=== PATIENT | male | born 1950 | race Two or more races ===

== ENCOUNTER 2023-06-19 12:14 | Emergency (ER) | payer MEDICARE, OTHER ==
[2023-06-19 14:58] VITALS: BP 159/81; PULSE 80; RESP 18; TEMP 98.4; O2SAT 98
[2023-06-19] MEDS ORDERED: IBUP-1454 PO (15:52)
[2023-06-19] MEDS ORDERED: CEPH250C PO (15:52)
[2023-06-19] MEDS ORDERED: ACET500T58 PO (15:52)
== END 2023-06-19 16:55 | disposition home or self-care (01) ==
LOC: EDBD 12:14 → ER 12:14
DX: S01.511A Laceration without foreign body of lip, initial encounter (principal); S80.01XA Contusion of right knee, initial encounter; S60.221A Contusion of right hand, initial encounter; W01.0XXA Fall on same level from slipping, tripping and stumbling without subsequent striking against object, initial encounter; Y93.89 Activity, other specified; Y92.89 Other specified places as the place of occurrence of the external cause; Y99.8 Other external cause status
CPT/HCPCS: 12011; 73130; 73562

== ENCOUNTER 2023-09-13 14:13 | Inpatient (IN) | payer BC, OTHER ==
[~2023-09-13] VITALS: Ht 165.1 cm; Wt 93.9 kg
[~2023-09-13 14:13] MED LIST: ACET500T58 PO; CEPH250C PO; IBUP-1454 PO
[2023-09-13 14:35] VITALS: PULSE 117; RESP 18; O2SAT 96
[2023-09-13 15:11] LABS: Basophils # (auto) 0.1 10 ^3/uL (0-0.2); Basophils % (auto) 0.6 % (0.0-2.0); Eosinophils # (auto) 0 10 ^3/uL (0-0.8); Eosinophils % (auto) 0.1 % (0.0-7.0); Hematocrit 44.3 % (41.0-53.0); Hemoglobin 14.3 g/dL (13.5-17.5); Lymphocytes # (auto) 0.9 10 ^3/uL (0.4-5.4); Lymphocytes % (auto) 6.4 % (10.0-50.0); Mean Corpuscular Hgb Conc. 32.3 g/dL (32.0-36.0); Mean Corpuscular Volume 89.8 fL (80.0-100.0); Monocytes # (auto) 1.1 10 ^3/uL (0-1.3); Monocytes % (auto) 8.1 % (0.0-12.0); Neutrophils # (auto) 11.3 10 ^3/uL (1.6-8.6); Neutrophils % (auto) 84.8 % (37.0-80.0); Nucleated Red Blood Cells % 0.3 %; Red Blood Cells 4.94 10^6/uL (4.5-5.90); Red Cell Distribution Width 13.8 % (11.8-14.3); White Blood Cell 13.3 10^3/uL (4.4-10.8)
[2023-09-13] MEDS: KETOROLAC TROMETH 30 MG/ML 1ML VIAL IM ONE (15:23)
[2023-09-13 15:24] LABS: Alanine Aminotransferase 95 U/L (7-40); Alkaline Phosphatase 80 U/L (46-116); Anion Gap 12 (5-15); Aspartate Aminotransferase 198 U/L (13-40); BUN/Creatinine Ratio 27.8 (10.0-20.0); Bilirubin, Total 0.8 mg/dL (0.2-1.0); Blood Urea Nitrogen 37 mg/dL (9-23); Calcium 10.5 mg/dL (8.5-10.1); Carbon Dioxide 22 mmol/L (20-30); Chloride 107 mmol/L (98-107); Glucose 139 mg/dL (74-106); Potassium 3.7 mmol/L (3.5-5.1); Sodium 141 mmol/L (136-145); Total Protein 7.6 g/dL (5.7-8.2)
[2023-09-13] MEDS: SODIUM CHLORIDE 0.9% 500 ML IV ONE (17:00)
[2023-09-13] MEDS ORDERED: PIPERACILLIN-TAZOB 3.375GM 100 ML IV SCH (17:00)
[2023-09-13] MEDS ORDERED: NITROGLYCERIN 0.4 MG SL TAB SL PRN (17:00)
[2023-09-13] MEDS ORDERED: MORPHINE SULFATE INJ 2 MG/ml SYRG IV PRN (17:00)
[2023-09-13] MEDS ORDERED: hydrALAZINE HCL 20 MG/ML VL IV PRN (17:15)
[2023-09-13] MEDS ORDERED: ENOXAPARIN SOD 80 MG/0.8ML SYRINGE SC ONE (17:30)
[2023-09-13 17:36] LABS: INR 0.98 (0.9-1.15); Prothrombin Time 10.3 sec (9.3-11.8)
[2023-09-13] MEDS: HYDROcodone-ACET 5/325MG TAB PO ONE (18:00)
[2023-09-13 18:10] VITALS: PULSE 119; RESP 20; O2SAT 95
[2023-09-13] MEDS ORDERED: RIVA10TA PO (18:28)
[2023-09-13] MEDS ORDERED: METF-370 PO (18:28)
[2023-09-13 20:00] VITALS: PULSE 102
[2023-09-13 21:00] VITALS: BP 146/76; PULSE 120; RESP 19; TEMP 99.5; O2SAT 96
[2023-09-13] MEDS: SODIUM CHLORIDE 0.9% 1,000 ML IV SCH (22:17)
[2023-09-13] MEDS: PIPERACILLIN-TAZOB 3.375GM 100 ML IV SCH (22:18)
[2023-09-13] MEDS: RIVAROXABAN 10 MG TAB PO ONE (22:24)
[2023-09-14] VITALS (9 sets, daily range): BP systolic 121–156; BP diastolic 69–90; PULSE 80–120; RESP 17–21; TEMP 97.8–100.3; O2SAT 93–100
[2023-09-14] MEDS ORDERED: METO25TA93 PO (02:59)
[2023-09-14] MEDS ORDERED: PRAV20TA3 PO (03:06)
[2023-09-14] MEDS ORDERED: METF-929 PO (03:06)
[2023-09-14 05:51] LABS: Basophils # (auto) 0.1 10 ^3/uL (0-0.2); Basophils % (auto) 0.5 % (0.0-2.0); Eosinophils # (auto) 0 10 ^3/uL (0-0.8); Eosinophils % (auto) 0.3 % (0.0-7.0); Hematocrit 37.2 % (41.0-53.0); Hemoglobin 12.2 g/dL (13.5-17.5); Lymphocytes # (auto) 0.9 10 ^3/uL (0.4-5.4); Mean Corpuscular Hemoglobin 29.3 pg (28.0-32.0); Mean Corpuscular Hgb Conc. 32.8 g/dL (32.0-36.0); Mean Corpuscular Volume 89.4 fL (80.0-100.0); Monocytes # (auto) 1.1 10 ^3/uL (0-1.3); Monocytes % (auto) 11.3 % (0.0-12.0); Neutrophils # (auto) 7.9 10 ^3/uL (1.6-8.6); Neutrophils % (auto) 78.9 % (37.0-80.0); Nucleated Red Blood Cells % 0.3 %; Red Blood Cells 4.16 10^6/uL (4.5-5.90)
[2023-09-14 05:56] LABS: Chloride 106 mmol/L (98-107); Potassium 3.9 mmol/L (3.5-5.1); Sodium 137 mmol/L (136-145)
[2023-09-14 05:57] LABS: Anion Gap 5 (5-15); Carbon Dioxide 26 mmol/L (20-30)
[2023-09-14 05:58] LABS: Calcium 9.6 mg/dL (8.7-10.4)
[2023-09-14 06:02] LABS: Glucose 119 mg/dL (74-106)
[2023-09-14 06:03] LABS: BUN/Creatinine Ratio 30.4 (10.0-20.0); Blood Urea Nitrogen 38 mg/dL (9-23)
[2023-09-14] MEDS: LIDOCAINE 2%HCL (LOCAL ANESTH.) INJ 10ml MDV IJ ONE (08:00)
[2023-09-14] MEDS: METOPROLOL SUCCINATE XL 50 MG TAB PO SCH (08:04)
[2023-09-14] MEDS ORDERED: METOPROLOL SUCCINATE XL 50 MG TAB PO SCH (10:00)
[2023-09-14] MEDS: metFORMIN HYDROCHLORIDE 500 MG TAB PO SCH (10:00)
[2023-09-14] MEDS ORDERED: fentaNYL CITRATE 100 MCG/2 ML VL ONE (10:14)
[2023-09-14] MEDS ORDERED: MIDAZOLAM HCL 2MG/2ML 2ml VIAL (1mg/ml) ONE (10:14)
[2023-09-14] MEDS: SUCCINYLCHOLINE CHLORIDE 20 MG/ML 10ML VIAL IV ONE (10:15)
[2023-09-14] MEDS ORDERED: LIDOCAINE 2% (LOCAL ANESTH.) PF 5ml SDV ONE (10:41)
[2023-09-14] MEDS ORDERED: PROPOFOL 10 MG/ML 20 ML IV ONE (10:41)
[2023-09-14] MEDS ORDERED: ONDANSETRON HCL 4 MG/2 ML VIAL ONE (10:41)
[2023-09-14] MEDS ORDERED: D5W/LACTATED RINGERS 1,000 ML IV SCH (10:45)
[2023-09-14] MEDS ORDERED: HYDROmorphone HCL 2 MG/ML VL/or syr IV PRN (11:00)
[2023-09-14] MEDS: SODIUM CHLORIDE 0.9% 1,000 ML IV ONE (11:15)
[2023-09-14] MEDS: ONDANSETRON HCL 4 MG/2 ML VIAL IV ONE (11:17)
[2023-09-14] MEDS: SODIUM CHLORIDE 0.9% 1,000 ML IV SCH (12:30)
[2023-09-14] MEDS: ACETAMINOPHEN 325 MG TAB PO PRN (16:11)
[2023-09-14] MEDS: RIVAROXABAN 10 MG TAB PO SCH (17:24)
[2023-09-15] VITALS (7 sets, daily range): BP systolic 130–156; BP diastolic 69–80; PULSE 78–98; RESP 18–20; TEMP 98.1–98.5; O2SAT 92–97
[2023-09-15 08:06] LABS: Basophils # (auto) 0 10 ^3/uL (0-0.2); Basophils % (auto) 0.2 % (0.0-2.0); Eosinophils # (auto) 0.2 10 ^3/uL (0-0.8); Eosinophils % (auto) 2.7 % (0.0-7.0); Hematocrit 34.5 % (41.0-53.0); Hemoglobin 11.1 g/dL (13.5-17.5); Lymphocytes # (auto) 0.7 10 ^3/uL (0.4-5.4); Lymphocytes % (auto) 9.8 % (10.0-50.0); Mean Corpuscular Hemoglobin 29.2 pg (28.0-32.0); Mean Corpuscular Hgb Conc. 32.3 g/dL (32.0-36.0); Mean Corpuscular Volume 90.3 fL (80.0-100.0); Monocytes # (auto) 0.7 10 ^3/uL (0-1.3); Monocytes % (auto) 9.9 % (0.0-12.0); Neutrophils # (auto) 5.1 10 ^3/uL (1.6-8.6); Neutrophils % (auto) 77.4 % (37.0-80.0); Nucleated Red Blood Cells % 0.2 %; Red Blood Cells 3.82 10^6/uL (4.5-5.90); Red Cell Distribution Width 13.9 % (11.8-14.3); White Blood Cell 6.6 10^3/uL (4.4-10.8)
[2023-09-15 08:46] LABS: Calcium 8.7 mg/dL (8.5-10.1); Chloride 109 mmol/L (98-107); Potassium 3.7 mmol/L (3.5-5.1); Sodium 138 mmol/L (136-145)
[2023-09-15 08:47] LABS: Anion Gap 5 (5-15); Carbon Dioxide 24 mmol/L (20-30)
[2023-09-15 08:52] LABS: BUN/Creatinine Ratio 22.2 (10.0-20.0); Glucose 117 mg/dL (74-106)
[2023-09-15 09:01] LABS: Blood Urea Nitrogen 24 mg/dL (9-23)
[2023-09-15 09:05] LABS: Creatine Kinase IFCC 2838 U/L (46-171)
[2023-09-15] MEDS: SODIUM CHLORIDE 0.9% 1,000 ML IV ONE (09:45)
[2023-09-15] MEDS: IOHEXOL 350 MG/ML 100ML IJ ONE (12:08)
[2023-09-16] VITALS (7 sets, daily range): BP systolic 103–143; BP diastolic 61–87; PULSE 70–82; RESP 16–20; TEMP 98–99.2; O2SAT 93–96
[2023-09-16 06:32] LABS: Basophils # (auto) 0 10 ^3/uL (0-0.2); Basophils % (auto) 0.2 % (0.0-2.0); Eosinophils # (auto) 0.4 10 ^3/uL (0-0.8); Eosinophils % (auto) 5.5 % (0.0-7.0); Hematocrit 30.6 % (41.0-53.0); Hemoglobin 10.1 g/dL (13.5-17.5); Lymphocytes # (auto) 1.1 10 ^3/uL (0.4-5.4); Lymphocytes % (auto) 15.4 % (10.0-50.0); Mean Corpuscular Hemoglobin 29.7 pg (28.0-32.0); Mean Corpuscular Volume 90.2 fL (80.0-100.0); Monocytes # (auto) 0.7 10 ^3/uL (0-1.3); Monocytes % (auto) 10.4 % (0.0-12.0); Neutrophils # (auto) 4.7 10 ^3/uL (1.6-8.6); Neutrophils % (auto) 68.5 % (37.0-80.0); Nucleated Red Blood Cells % 0.1 %; Red Blood Cells 3.39 10^6/uL (4.5-5.90); Red Cell Distribution Width 13.8 % (11.8-14.3); White Blood Cell 6.8 10^3/uL (4.4-10.8)
[2023-09-16 06:45] LABS: Chloride 108 mmol/L (98-107); Potassium 3.7 mmol/L (3.5-5.1); Sodium 137 mmol/L (136-145)
[2023-09-16 06:46] LABS: Anion Gap 5 (5-15); Carbon Dioxide 24 mmol/L (20-30)
[2023-09-16 06:47] LABS: Calcium 8.2 mg/dL (8.5-10.1)
[2023-09-16 06:51] LABS: BUN/Creatinine Ratio 19.8 (10.0-20.0); Blood Urea Nitrogen 18 mg/dL (9-23); Glucose 94 mg/dL (74-106)
[2023-09-16] MEDS ORDERED: HYDR-4902 PO (09:46)
[2023-09-16] MEDS ORDERED: IBUP-1454 PO (09:48)
[2023-09-16] MEDS ORDERED: ACET500T58 PO (09:51)
[2023-09-16] MEDS: HYDROcodone-ACET 5/325MG TAB PO PRN (11:35)
[2023-09-17] VITALS (8 sets, daily range): BP systolic 132–157; BP diastolic 70–95; PULSE 79–89; RESP 18–19; TEMP 98.1–99.4; O2SAT 93–98
[2023-09-17 05:51] LABS: Basophils # (auto) 0 10 ^3/uL (0-0.2); Basophils % (auto) 0.5 % (0.0-2.0); Eosinophils # (auto) 0.5 10 ^3/uL (0-0.8); Eosinophils % (auto) 7.4 % (0.0-7.0); Hematocrit 29.7 % (41.0-53.0); Hemoglobin 9.9 g/dL (13.5-17.5); Lymphocytes % (auto) 14.1 % (10.0-50.0); Mean Corpuscular Hemoglobin 29.7 pg (28.0-32.0); Mean Corpuscular Hgb Conc. 33.3 g/dL (32.0-36.0); Mean Corpuscular Volume 89.3 fL (80.0-100.0); Monocytes # (auto) 0.7 10 ^3/uL (0-1.3); Monocytes % (auto) 10.8 % (0.0-12.0); Neutrophils # (auto) 4.6 10 ^3/uL (1.6-8.6); Neutrophils % (auto) 67.2 % (37.0-80.0); Red Blood Cells 3.33 10^6/uL (4.5-5.90); Red Cell Distribution Width 13.8 % (11.8-14.3); White Blood Cell 6.8 10^3/uL (4.4-10.8)
[2023-09-17 05:57] LABS: Chloride 106 mmol/L (98-107); Potassium 3.5 mmol/L (3.5-5.1); Sodium 136 mmol/L (136-145)
[2023-09-17 05:59] LABS: Anion Gap 5 (5-15); Calcium 8.4 mg/dL (8.7-10.4); Carbon Dioxide 25 mmol/L (20-30)
[2023-09-17 06:04] LABS: Blood Urea Nitrogen 13 mg/dL (9-23); Glucose 98 mg/dL (74-106)
[2023-09-17] MEDS: ACCU-CHEK COMFORT CURVE STRIP VI SCH (11:33)
[2023-09-17 13:36] LABS: Urine Bacteria FEW /hpf (None Seen); Urine Blood Negative /uL (Negative); Urine Clarity Clear (Clear); Urine Color Yellow (Yellow); Urine Protein, UAD Negative (Negative); Urine Specific Gravity 1.018 (1.001-1.035); Urine Urobilinogen Normal (Negative); Urine WBC 1 /hpf (0 - 3); Urine pH 5.5 (5.0-9.0)
[2023-09-18] VITALS (9 sets, daily range): BP systolic 122–154; BP diastolic 66–81; PULSE 70–85; RESP 18–19; TEMP 98–100.1; O2SAT 91–98
[2023-09-18 06:54] LABS: Basophils # (auto) 0 10 ^3/uL (0-0.2); Basophils % (auto) 0.5 % (0.0-2.0); Eosinophils # (auto) 0.5 10 ^3/uL (0-0.8); Eosinophils % (auto) 7.1 % (0.0-7.0); Hematocrit 29.9 % (41.0-53.0); Hemoglobin 9.9 g/dL (13.5-17.5); Lymphocytes # (auto) 1.1 10 ^3/uL (0.4-5.4); Lymphocytes % (auto) 16.7 % (10.0-50.0); Mean Corpuscular Hemoglobin 29.8 pg (28.0-32.0); Mean Corpuscular Hgb Conc. 33.1 g/dL (32.0-36.0); Mean Corpuscular Volume 89.9 fL (80.0-100.0); Monocytes # (auto) 0.8 10 ^3/uL (0-1.3); Monocytes % (auto) 11.9 % (0.0-12.0); Neutrophils # (auto) 4.1 10 ^3/uL (1.6-8.6); Neutrophils % (auto) 63.8 % (37.0-80.0); Nucleated Red Blood Cells % 0.1 %; Red Blood Cells 3.33 10^6/uL (4.5-5.90); Red Cell Distribution Width 13.5 % (11.8-14.3); White Blood Cell 6.5 10^3/uL (4.4-10.8)
[2023-09-18 07:06] LABS: Chloride 108 mmol/L (98-107); Potassium 3.3 mmol/L (3.5-5.1); Sodium 137 mmol/L (136-145)
[2023-09-18 07:07] LABS: Anion Gap 4 (5-15); Calcium 8.4 mg/dL (8.5-10.1); Carbon Dioxide 25 mmol/L (20-30)
[2023-09-18 07:12] LABS: BUN/Creatinine Ratio 11.2 (10.0-20.0); Blood Urea Nitrogen 10 mg/dL (9-23); Glucose 112 mg/dL (74-106)
[2023-09-18] MEDS ORDERED: HYDROmorphone HCL 2 MG/ML VL/or syr ONE (12:05)
[2023-09-18] MEDS ORDERED: MIDAZOLAM HCL 2MG/2ML 2ml VIAL (1mg/ml) ONE (12:05)
[2023-09-18] MEDS ORDERED: KETAMINE 50mg/ML 1ml syringe ONE (12:05)
[2023-09-18] MEDS ORDERED: fentaNYL CITRATE 100 MCG/2 ML VL ONE (12:05)
[2023-09-18] MEDS ORDERED: ePHEDrine SULFATE 50 MG/ML AMP ONE (12:06)
[2023-09-18] MEDS ORDERED: ROCURONIUM 10MG/ML 10ML VIAL IV ONE (12:06)
[2023-09-18] MEDS ORDERED: PROPOFOL 10 MG/ML 20 ML IV ONE (12:06)
[2023-09-18] MEDS ORDERED: DexAMETHasone SOD PHOS 10MG/1ML VIAL INJ ONE (12:06)
[2023-09-18] MEDS ORDERED: GLYCOPYRROLATE 0.2 MG/ML 1ML VIAL ONE (12:06)
[2023-09-18] MEDS ORDERED: ONDANSETRON HCL 4 MG/2 ML VIAL ONE (12:06)
[2023-09-18] MEDS ORDERED: LIDOCAINE 1% INJ PF 5ML AMP ONE (12:06)
[2023-09-18] MEDS ORDERED: PHENYLEPHRINE HCL 10 MG/ML VL ONE (12:06)
[2023-09-18] MEDS ORDERED: SUGAMMADEX 200mg/2ml Vial (100MG/ML) IV ONE (13:21)
[2023-09-18] MEDS: VANCOMYCIN HCL 1000 MG VL ONE (13:24)
[2023-09-18] MEDS ORDERED: HYDROmorphone HCL 2 MG/ML VL/or syr IV PRN (14:30)
[2023-09-18] MEDS: ceFAZolin 2 GM/D5W50ml 50 ML IV ONE (16:09)
[2023-09-18] MEDS: ROPIVACAINE 0.5% (5MG/ML) 20ML AMPULE IJ ONE (16:10)
[2023-09-18] MEDS: ACCU-CHEK COMFORT CURVE STRIP VI ONE (20:52)
[2023-09-18] MEDS: ceFAZolin 1GM/50ML 50 ML IV SCH (21:21)
[2023-09-18] MEDS: ONDANSETRON HCL 4 MG/2 ML VIAL IV ONE (23:00)
[2023-09-19] VITALS (8 sets, daily range): BP systolic 112–148; BP diastolic 70–88; PULSE 70–93; RESP 18–21; TEMP 98.3–99.3; O2SAT 94–100
[2023-09-19 06:35] LABS: Basophils # (auto) 0.1 10 ^3/uL (0-0.2); Basophils % (auto) 0.7 % (0.0-2.0); Eosinophils # (auto) 0 10 ^3/uL (0-0.8); Eosinophils % (auto) 0.4 % (0.0-7.0); Hematocrit 30.3 % (41.0-53.0); Hemoglobin 9.6 g/dL (13.5-17.5); Lymphocytes % (auto) 10.7 % (10.0-50.0); Mean Corpuscular Hemoglobin 28.8 pg (28.0-32.0); Mean Corpuscular Hgb Conc. 31.8 g/dL (32.0-36.0); Mean Corpuscular Volume 90.4 fL (80.0-100.0); Monocytes # (auto) 0.8 10 ^3/uL (0-1.3); Monocytes % (auto) 8.5 % (0.0-12.0); Neutrophils # (auto) 7.6 10 ^3/uL (1.6-8.6); Neutrophils % (auto) 79.7 % (37.0-80.0); Nucleated Red Blood Cells % 0.1 %; Red Blood Cells 3.35 10^6/uL (4.5-5.90); Red Cell Distribution Width 13.8 % (11.8-14.3); White Blood Cell 9.6 10^3/uL (4.4-10.8)
[2023-09-19 06:50] LABS: Chloride 105 mmol/L (98-107); Potassium 3.8 mmol/L (3.5-5.1); Sodium 134 mmol/L (136-145)
[2023-09-19 06:51] LABS: Anion Gap 5 (5-15); Calcium 8.7 mg/dL (8.5-10.1); Carbon Dioxide 24 mmol/L (20-30)
[2023-09-19 06:56] LABS: BUN/Creatinine Ratio 10.6 (10.0-20.0); Blood Urea Nitrogen 10 mg/dL (9-23); Glucose 135 mg/dL (74-106)
[2023-09-19] MEDS: LOPERAMIDE HCL 2 MG CAP/TAB PO ONE (15:35)
== END 2023-09-19 20:18 | DRG 510 ==
LOC: EDBD 14:13 → EDUNIT# 14:13 → ER 14:13 → TELE 16:51 → TELE-CENTR 18:10
PROVIDERS: ADMIT Internal Medicine; ATTEND Internal Medicine
PROC: 3E0T3BZ Introduction of Anesthetic Agent into Peripheral Nerves and Plexi, Percutaneous Approach (ICD-10-PCS; 2023-09-18)
PROC: 0LQ20ZZ Repair Left Shoulder Tendon, Open Approach (ICD-10-PCS; 2023-09-18)
PROC: 2W6 Placement, Anatomical Regions, Traction (ICD-10-PCS; 2023-09-18)
PROC: 0RSK0ZZ Reposition Left Shoulder Joint, Open Approach (ICD-10-PCS; principal; 2023-09-18 12:20)
DX: S43.015A Anterior dislocation of left humerus, initial encounter (principal); G92.8 Other toxic encephalopathy; N17.0 Acute kidney failure with tubular necrosis; M62.82 Rhabdomyolysis; I69.354 Hemiplegia and hemiparesis following cerebral infarction affecting left non-dominant side; D68.59 Other primary thrombophilia; I24.89 Other forms of acute ischemic heart disease; I48.91 Unspecified atrial fibrillation; I10 Essential (primary) hypertension; W18.39XA Other fall on same level, initial encounter; E11.9 Type 2 diabetes mellitus without complications; Z91.81 History of falling; Z79.84 Long term (current) use of oral hypoglycemic drugs; Z79.01 Long term (current) use of anticoagulants; Y93.89 Activity, other specified; Y99.8 Other external cause status; Y92.009 Unspecified place in unspecified non-institutional (private) residence as the place of occurrence of the external cause
CPT/HCPCS: 36415; 70450; 70551; 71045; 71250; 72125; 73020; 73030; 73060; 73200; 74176; 76000; 80048; 80053; 81001; 82550; 82962; 84484; 85025; 85610; 87040; 93005; 93306; 97110; 97116; 97163; 97530; G0378; J0330; J1100; J2001; J2250; J2405; J2543; J2704